=== PATIENT | male | born 1970 | race Caucasian/White ===

== ENCOUNTER 2020-12-21 11:11 | Outpatient (CLI) | payer OTHER, SELFPAY ==
--- NOTE | 2020-12-21 11:22 | XR_ITS ---
WS: [id number] XR thoracic spine 2V [id number] REASON FOR EXAM: BACK PAIN FINDINGS: Normal alignment of the thoracic spine. Normal thoracic spine vertebral bodies. Normal thoracic intervertebral disc spaces. XR/XR thoracic spine 2V [id number] IMPRESSION: Normal thoracic spine.
== END 2020-12-21 11:12 | disposition home or self-care (01) ==
LOC: RAD 11:18
PROVIDERS: Visit Provider Dermatology
DX: Z02.71 Encounter for disability determination (principal); M54.6 Pain in thoracic spine
CPT/HCPCS: 72070